=== PATIENT | male | born 1960 | race Caucasian/White ===

== ENCOUNTER 2017-08-21 16:50 | Emergency (ER) | payer OTHER ==
[~2017-08-21] VITALS: Ht 170.2 cm; Wt 70.5 kg
[~2017-08-21 16:50] MED LIST: ASPIR-LOW81 MG PO; CHLORDIAZEPOXID25 MG PO; EFFEXOR50 MG PO; EXTRA STRENGTH500 M1 PO; FLEXERIL10 MG PO; FOLIC ACID1 MG PO; GABAPENTIN300 MG PO; LIBRIUM25 MG PO; MECLIZINE HCL25 MG PO; MELOXICAM7.5 MG PO; MOBIC15 MG PO; MULTI VITAMIN1 EACH PO; NALTREXONE HCL50 MG PO; NICOTINE PATCH1 EAC2 TD; THERAGRAN1 TABLET PO; THIAMINE HCL100 MG PO; TRAZODONE HCL100 MG PO; ULTRAM50 MG PO; VITAMIN B-1100 MG PO
[2017-08-21 18:14] LABS: SERUM ETHYL ALCOHOL 202 mg/dL
[2017-08-21 18:47] LABS: HEMATOCRIT 47.1 % (38.0-50.0); MCH 33.7 PG (29.0-34.0); MCHC 33.8 G/DL (30.0-36.0); MCV 99.8 FL (86-99); MEAN PLAT.VOLUME 9.6 uM^3 (9.0-12.4); PLATELET COUNT 281 K/uL (156-360); RBC DIS.WIDTH-CV 15.6 % (11.8-14.6); RBC DIS.WIDTH-SD 57.5 % (39-53); RED BLOOD COUNT 4.72 M/uL (4.00-5.50); WHITE BLOOD COUNT 6.9 K/uL (4.1-10.2)
[2017-08-21 18:52] LABS: CHLORIDE 104 mEq/L (99-109); SODIUM 141 mEq/L (136-147)
[2017-08-21 18:53] LABS: GLUCOSE 128 mg/dL (70-99)
[2017-08-21 18:55] LABS: ANION GAP 11 MEQ/L (2-14)
[2017-08-21 18:57] LABS: GFR ESTIMATE (CALCULATED) > 59 mL/min/
[2017-08-21 18:58] LABS: UREA NITROGEN (BUN) 17 mg/dL (9-23)
[2017-08-21 20:50] LABS: ADD MEDTOX COMMENT Y; AMPHETAMINE NEGATIVE (500 ng/mL); BARBITURATES NEGATIVE (200 ng/mL); BENZODIAZEPINES PRESUMPTIVE POSITIVE (150 ng/mL); COCAINE NEGATIVE (150 ng/mL); INTERNAL CONTROLS VALID? YES; METHADONE NEGATIVE (200 ng/mL); METHAMPHETAMINE NEGATIVE (500 ng/mL); OPIATES (MORPHINE) NEGATIVE (100 ng/mL); OXYCODONE NEGATIVE (100 ng/mL); PHENCYCLIDINE NEGATIVE (25 ng/mL); PROPOXYPHENE NEGATIVE (300 ng/mL); THC CANNABINOIDS NEGATIVE (50 ng/mL); TRICYCLIC ANTIDEPRESSANTS NEGATIVE (300 ng/mL)
[2017-08-21 21:03] LABS: ADD MIUA? YES; BILIRUBIN NEGATIVE; BLOOD NEGATIVE; COLOR YELLOW ((YELLOW)); GLUCOSE (STRIP) 50; KETONES 5; LEUKOCYTES NEGATIVE; NITRITE NEGATIVE; PROTEIN (STRIP) NEGATIVE; SPECIFIC GRAVITY 1.017 (1.000-1.030); UROBILINOGEN 0.2 MG/DL (0.2-1.0)
[2017-08-21 21:24] LABS: BENZODIAZEPINES, URINE SCREEN POSITIVE (200 ng/mL)
[2017-08-21 21:32] LABS: BACTERIA RARE /HPF; EPITHELIAL CELLS NONE SEEN /HPF; MUCUS TRACE /LPF; UCUL ADDED? NO; WHITE BLOOD CELLS 0-5 /HPF (0-5)
[2017-08-21 22:51] VITALS: BP 106/60
== END 2017-08-21 23:02 | disposition home or self-care (01) ==
LOC: EME 16:50
PROVIDERS: Emergency Medicine
DX: F10.229 Alcohol dependence with intoxication, unspecified (principal); R27.0 Ataxia, unspecified; Y90.7 Blood alcohol level of 200-239 mg/100 ml
CPT/HCPCS: 80048; 81003; 84999; 85027; 99281; 99285; G0480; J3411; J3475; J7030

== ENCOUNTER 2017-09-01 23:27 | Emergency (ER) | payer OTHER ==
[~2017-09-01] VITALS: Ht 170.2 cm; Wt 75.0 kg
[2017-09-02 00:46] LABS: EOSINOPHIL (%) 1.6 % (0-5); EOSINOPHIL COUNT 0.1 K/uL (0-0.3); HEMATOCRIT 43.5 % (38.0-50.0); INSTRUMENT ABS NEUTROPHIL CT 2.2 K/uL; LYMPHOCYTE COUNT 2.1 K/uL (1.0-2.8); MCH 33.5 PG (29.0-34.0); MCHC 34.3 G/DL (30.0-36.0); MCV 97.8 FL (86-99); MEAN PLAT.VOLUME 9.4 uM^3 (9.0-12.4); MONOCYTE (%) 9.7 % (3-12); MONOCYTE COUNT 0.5 K/uL (0-0.8); NEUTROPHIL (%) 45.2 % (45-76); NEUTROPHIL COUNT 2.2 K/uL (1.8-6.4); PLATELET COUNT 177 K/uL (156-360); RBC DIS.WIDTH-CV 15.9 % (11.8-14.6); RBC DIS.WIDTH-SD 58.3 % (39-53); RED BLOOD COUNT 4.45 M/uL (4.00-5.50)
[2017-09-02 00:58] LABS: CHLORIDE 109 mEq/L (99-109); POTASSIUM 3.7 mEq/L (3.7-5.4); SODIUM 144 mEq/L (136-147)
[2017-09-02 01:01] LABS: GLUCOSE 161 mg/dL (70-99)
[2017-09-02 01:02] LABS: ANION GAP 13 MEQ/L (2-14); TOTAL BILIRUBIN 0.4 mg/dL (0.0-1.0)
[2017-09-02 01:03] LABS: SERUM ETHYL ALCOHOL 248 mg/dL
[2017-09-02 01:04] LABS: ALKALINE PHOSPHATASE 64 IU/L (3-129); GFR ESTIMATE (CALCULATED) > 59 mL/min/
[2017-09-02 01:05] LABS: UREA NITROGEN (BUN) 7 mg/dL (9-23)
[2017-09-02 01:08] LABS: LIPASE 29 U/L (1.0-51.0)
[2017-09-02 07:20] VITALS: BP 112/72
== END 2017-09-02 07:29 | disposition home or self-care (01) ==
LOC: EME → EDBD 23:27 → EME 23:27
PROVIDERS: Emergency Medicine
DX: F10.229 Alcohol dependence with intoxication, unspecified (principal); Y90.8 Blood alcohol level of 240 mg/100 ml or more; R10.9 Unspecified abdominal pain; I10 Essential (primary) hypertension
CPT/HCPCS: 80053; 83690; 85025; 99281; 99284; G0480

== ENCOUNTER 2017-09-04 01:06 | Observation (INO) | payer OTHER ==
[~2017-09-04] VITALS: Ht 170.2 cm; Wt 67.6 kg
[2017-09-04 01:52] LABS: EOSINOPHIL (%) 1.1 % (0-5); EOSINOPHIL COUNT 0.1 K/uL (0-0.3); HEMATOCRIT 42.1 % (38.0-50.0); IMMATURE GRANULOCYTE (%) 0.1 % (0.0-0.7); INSTRUMENT ABS NEUTROPHIL CT 3.8 K/uL; LYMPHOCYTE COUNT 2.6 K/uL (1.0-2.8); MCH 33.3 PG (29.0-34.0); MCHC 34.9 G/DL (30.0-36.0); MCV 95.2 FL (86-99); MEAN PLAT.VOLUME 9.5 uM^3 (9.0-12.4); MONOCYTE COUNT 0.7 K/uL (0-0.8); NEUTROPHIL (%) 52.4 % (45-76); NEUTROPHIL COUNT 3.8 K/uL (1.8-6.4); PLATELET COUNT 171 K/uL (156-360); RBC DIS.WIDTH-CV 15.5 % (11.8-14.6); RBC DIS.WIDTH-SD 54.4 % (39-53); RED BLOOD COUNT 4.42 M/uL (4.00-5.50); WHITE BLOOD COUNT 7.2 K/uL (4.1-10.2)
[2017-09-04 02:01] LABS: CHLORIDE 105 mEq/L (99-109); POTASSIUM 3.4 mEq/L (3.7-5.4); SODIUM 141 mEq/L (136-147)
[2017-09-04 02:04] LABS: GLUCOSE 125 mg/dL (70-99)
[2017-09-04 02:05] LABS: ANION GAP 15 MEQ/L (2-14)
[2017-09-04 02:06] LABS: SERUM ETHYL ALCOHOL 159 mg/dL
[2017-09-04 02:07] LABS: ALKALINE PHOSPHATASE 59 IU/L (3-129); GFR ESTIMATE (CALCULATED) > 59 mL/min/
[2017-09-04 02:08] LABS: UREA NITROGEN (BUN) 10 mg/dL (9-23)
[2017-09-04 02:11] LABS: LIPASE 21 U/L (1.0-51.0)
[2017-09-04 02:12] LABS: TROP-I INTERPRETATION NEGATIVE; TROPONIN-I 0.03 ng/mL (0.0-0.30)
[2017-09-04 02:13] LABS: TOTAL BILIRUBIN 0.5 mg/dL (0.0-1.0)
[2017-09-04 02:50] LABS: POINT-OF-CARE METER ID UU13113702
[2017-09-04 03:57] LABS: MAGNESIUM 1.7 mg/dL (1.3-2.7)
[2017-09-04 05:05] VITALS: BP 122/76
[2017-09-04 07:14] LABS: TROP-I INTERPRETATION NEGATIVE; TROPONIN-I 0.04 ng/mL (0.0-0.30)
[2017-09-04 08:20] VITALS: BP 143/98
[2017-09-04 10:16] LABS: AMPHETAMINES QUANT VALUE 0 NG/ML; BARBITUATES QUANT VALUE 0 NG/ML; BENZODIAZEPINES, URINE SCREEN POSITIVE (200 ng/mL); MARIJUANA QUANT VALUE 0 NG/ML; OPIATES QUANTITATIVE VALUE 0 NG/ML; PHENCYCLIDINE QUANT VALUE 0 NG/ML
[2017-09-04 11:18] VITALS: BP 146/81
[2017-09-04 14:41] LABS: TROP-I INTERPRETATION NEGATIVE; TROPONIN-I 0.02 ng/mL (0.0-0.30)
[2017-09-04 15:14] VITALS: BP 142/80
[2017-09-04 19:12] VITALS: BP 153/88
[2017-09-05 05:57] LABS: ANION GAP 8 MEQ/L (2-14); CHLORIDE 101 MEQ/L (99-109); GFR ESTIMATE (CALCULATED) > 59 mL/min/; GLUCOSE 104 mg/dL (70-99); POTASSIUM 3.9 MEQ/L (3.7-5.4); SAMPLE HEMOLYSIS CHECK 0; SAMPLE ICTERIC CHECK 0; SAMPLE LIPEMIA CHECK 0; SODIUM 135 MEQ/L (136-147); UREA NITROGEN (BUN) 12 mg/dL (9-23)
[2017-09-05] MEDS ORDERED: MEDROL DOSEPAK4 MG PO (10:56)
== END 2017-09-05 12:12 | disposition home or self-care (01) ==
LOC: EME 01:06 → EDBD 01:06 → EME 01:06 → EDOF 03:19 → ENRESERV 03:21 → 5WEST 04:35
PROVIDERS: Emergency Medicine; Physician Assistant
DX: R07.9 Chest pain, unspecified (principal); F10.229 Alcohol dependence with intoxication, unspecified; F10.239 Alcohol dependence with withdrawal, unspecified; Y90.6 Blood alcohol level of 120-199 mg/100 ml; E87.6 Hypokalemia; M75.32 Calcific tendinitis of left shoulder; K29.20 Alcoholic gastritis without bleeding; K76.0 Fatty (change of) liver, not elsewhere classified; I10 Essential (primary) hypertension; F32.9 Major depressive disorder, single episode, unspecified; Z86.010 Personal history of colon polyps; Z87.19 Personal history of other diseases of the digestive system; S80.812A Abrasion, left lower leg, initial encounter; S80.811A Abrasion, right lower leg, initial encounter; S00.31XA Abrasion of nose, initial encounter; R00.0 Tachycardia, unspecified; G62.9 Polyneuropathy, unspecified; F17.220 Nicotine dependence, chewing tobacco, uncomplicated; Z80.1 Family history of malignant neoplasm of trachea, bronchus and lung; Z82.5 Family history of asthma and other chronic lower respiratory diseases; Z82.0 Family history of epilepsy and other diseases of the nervous system; Z82.49 Family history of ischemic heart disease and other diseases of the circulatory system
CPT/HCPCS: 71020; 73030; 80048; 80053; 80306 90; 82948; 83690; 83735; 84484; 85025; 93005; 99281; 99285; G0378; G0480; J1650; J2060; J2405; J3411; J7030; S0028

== ENCOUNTER 2017-09-17 12:25 | Observation (INO) | payer OTHER ==
[~2017-09-17] VITALS: Ht 170.2 cm; Wt 69.6 kg
[~2017-09-17 12:25] MED LIST changes: +MEDROL DOSEPAK4 MG PO
[2017-09-17 13:15] LABS: HEMATOCRIT 41.3 % (38.0-50.0); MCH 34.1 PG (29.0-34.0); MCHC 34.4 G/DL (30.0-36.0); RBC DIS.WIDTH-CV 15.3 % (11.8-14.6); RBC DIS.WIDTH-SD 55.3 % (39-53); RED BLOOD COUNT 4.16 M/uL (4.00-5.50)
[2017-09-17 13:22] LABS: CHLORIDE 100 mEq/L (99-109); SODIUM 134 mEq/L (136-147)
[2017-09-17 13:24] LABS: GLUCOSE 122 mg/dL (70-99)
[2017-09-17 13:25] LABS: ANION GAP 7 MEQ/L (2-14)
[2017-09-17 13:26] LABS: MCV 99.3 FL (86-99); PLATELET COUNT 269 K/uL (156-360); TOTAL BILIRUBIN 0.6 mg/dL (0.0-1.0)
[2017-09-17 13:28] LABS: ALKALINE PHOSPHATASE 120 IU/L (3-129); GFR ESTIMATE (CALCULATED) > 59 mL/min/ (58.99-99999)
[2017-09-17 13:29] LABS: UREA NITROGEN (BUN) 15 mg/dL (9-23)
[2017-09-17 14:00] LABS: SERUM ETHYL ALCOHOL < 10 mg/dL
[2017-09-17 14:33] LABS: ADD MIUA? NO; BILIRUBIN NEGATIVE; BLOOD NEGATIVE; COLOR YELLOW ((YELLOW)); GLUCOSE (STRIP) NEGATIVE; KETONES NEGATIVE; LEUKOCYTES NEGATIVE; NITRITE NEGATIVE; PROTEIN (STRIP) NEGATIVE; SPECIFIC GRAVITY 1.009 (1.000-1.030); UCUL ADDED? NO; UROBILINOGEN 0.2 MG/DL (0.2-1.0)
[2017-09-17 15:28] LABS: TROP-I INTERPRETATION NEGATIVE; TROPONIN-I 0.02 ng/mL (0.0-0.30)
[2017-09-17 23:44] VITALS: BP 144/98
[2017-09-17 23:45] LABS: TROP-I INTERPRETATION NEGATIVE; TROPONIN-I 0.02 ng/mL (0.0-0.30)
[2017-09-18 03:33] VITALS: BP 151/90
[2017-09-18 09:08] LABS: TROP-I INTERPRETATION NEGATIVE; TROPONIN-I 0.02 ng/mL (0.0-0.30)
[2017-09-18 15:24] VITALS: BP 118/64
[2017-09-18 20:43] VITALS: BP 152/90
[2017-09-18 23:28] VITALS: BP 148/75
[2017-09-19 03:51] VITALS: BP 138/89
[2017-09-19 08:15] VITALS: BP 140/78
[2017-09-19] MEDS ORDERED: PEPCID20 MG PO (08:24)
== END 2017-09-19 12:30 | disposition home or self-care (01) ==
LOC: EME 12:25 → EDOF 15:57 → CANRESERV 16:18 → ENRESERV 16:18 → 5WEST 20:16 → ENPENDDIS 09-19 11:08 → 5WEST 09-19 12:30
PROVIDERS: Internal Medicine; Physician Assistant
DX: R07.9 Chest pain, unspecified (principal); F10.239 Alcohol dependence with withdrawal, unspecified; R42 Dizziness and giddiness; I10 Essential (primary) hypertension; K76.0 Fatty (change of) liver, not elsewhere classified; Z86.010 Personal history of colon polyps; Z87.19 Personal history of other diseases of the digestive system; Z86.19 Personal history of other infectious and parasitic diseases; M19.90 Unspecified osteoarthritis, unspecified site; Z72.0 Tobacco use; Z82.49 Family history of ischemic heart disease and other diseases of the circulatory system; Z80.1 Family history of malignant neoplasm of trachea, bronchus and lung; Z82.5 Family history of asthma and other chronic lower respiratory diseases; Z82.0 Family history of epilepsy and other diseases of the nervous system
CPT/HCPCS: 71020; 80053; 81003; 83735; 84484; 85027; 93005; 99281; 99285; G0378; G0480; J1885; J2270; J2405; S0028

== ENCOUNTER 2017-09-22 15:25 | Emergency (ER) | payer OTHER ==
[~2017-09-22] VITALS: Ht 170.2 cm; Wt 69.1 kg
[~2017-09-22 15:25] MED LIST changes: +PEPCID20 MG PO
[2017-09-22] MEDS ORDERED: BACTRIM,SEPT1 TABLET PO (16:49)
[2017-09-22 16:51] LABS: HEMATOCRIT 42.3 % (38.0-50.0); HEMOGLOBIN 14.8 G/DL (12.5-16.6); MCH 34.3 PG (29.0-34.0); MCV 98.1 FL (86-99); PLATELET COUNT 297 K/uL (156-360); RBC DIS.WIDTH-CV 15.9 % (11.8-14.6); RBC DIS.WIDTH-SD 57.8 % (39-53); RED BLOOD COUNT 4.31 M/uL (4.00-5.50); WHITE BLOOD COUNT 6.6 K/uL (4.1-10.2)
[2017-09-22 16:59] LABS: ALBUMIN 3.6 g/dL (3.2-4.8); CHLORIDE 104 mEq/L (99-109); POTASSIUM 3.7 mEq/L (3.7-5.4)
[2017-09-22 17:01] LABS: GLUCOSE 103 mg/dL (70-99); TOTAL PROTEIN 6.6 g/dL (6.4-8.3)
[2017-09-22 17:04] LABS: SERUM ETHYL ALCOHOL 223 mg/dL
[2017-09-22 17:05] LABS: CREATININE 0.7 mg/dL (0.6-1.3); GFR ESTIMATE (CALCULATED) > 59 mL/min/ (58.99-99999)
[2017-09-22 17:06] LABS: AST (GOT) 24 IU/L (2-34); UREA NITROGEN (BUN) 9 mg/dL (9-23)
[2017-09-22 17:08] LABS: ALT (GPT) 19 IU/L (3-49)
[2017-09-22 17:11] LABS: ALKALINE PHOSPHATASE 160 IU/L (3-129); SODIUM 141 mEq/L (136-147); TOTAL BILIRUBIN 0.3 mg/dL (0.0-1.0)
[2017-09-22] MEDS ORDERED: MULTIPLE VITAM1 EACH PO (23:13)
[2017-09-22 23:35] VITALS: BP 121/80
== END 2017-09-22 23:44 | disposition home or self-care (01) ==
LOC: EME 15:25
PROVIDERS: Emergency Medicine Emergency Medical Services
DX: F10.129 Alcohol abuse with intoxication, unspecified (principal); Y90.7 Blood alcohol level of 200-239 mg/100 ml; F32.9 Major depressive disorder, single episode, unspecified; I10 Essential (primary) hypertension; M19.90 Unspecified osteoarthritis, unspecified site; F17.220 Nicotine dependence, chewing tobacco, uncomplicated
CPT/HCPCS: 70450; 80053; 85027; 85610; 90839; 99281; 99285; G0480; J3411; J7030; J7050

== ENCOUNTER 2017-09-23 19:06 | Emergency (ER) | payer OTHER ==
[~2017-09-23] VITALS: Ht 172.7 cm; Wt 89.9 kg
[~2017-09-23 19:06] MED LIST changes: +BACTRIM,SEPT1 TABLET PO; +MULTIPLE VITAM1 EACH PO
[2017-09-23 19:47] LABS: HEMATOCRIT 43.4 % (38.0-50.0); MCH 34.2 PG (29.0-34.0); MCHC 34.8 G/DL (30.0-36.0); MCV 98.2 FL (86-99); PLATELET COUNT 298 K/uL (156-360); RBC DIS.WIDTH-CV 15.7 % (11.8-14.6); RBC DIS.WIDTH-SD 56.7 % (39-53); RED BLOOD COUNT 4.42 M/uL (4.00-5.50); WHITE BLOOD COUNT 4.4 K/uL (4.1-10.2)
[2017-09-23 19:55] LABS: CHLORIDE 107 mEq/L (99-109); POTASSIUM 3.7 mEq/L (3.7-5.4); SODIUM 146 mEq/L (136-147)
[2017-09-23 19:56] LABS: GLUCOSE 84 mg/dL (70-99)
[2017-09-23 19:58] LABS: ANION GAP 13 MEQ/L (2-14)
[2017-09-23 20:00] LABS: GFR ESTIMATE (CALCULATED) > 59 mL/min/ (58.99-99999); SERUM ETHYL ALCOHOL 308 mg/dL
[2017-09-23 20:02] LABS: UREA NITROGEN (BUN) 5 mg/dL (9-23)
[2017-09-23 20:03] LABS: SALICYLATE < 5.0 MG/DL (15-30)
[2017-09-24 04:43] VITALS: BP 148/72
== END 2017-09-24 04:43 | disposition home or self-care (01) ==
LOC: EME 19:06
PROVIDERS: Emergency Medicine
DX: F10.129 Alcohol abuse with intoxication, unspecified (principal); R45.851 Suicidal ideations; Y90.8 Blood alcohol level of 240 mg/100 ml or more; Z90.79 Acquired absence of other genital organ(s)
CPT/HCPCS: 80048; 85027; 90837; 99281; 99285; G0480

== ENCOUNTER 2017-10-01 14:29 | Emergency (ER) | payer OTHER ==
[~2017-10-01] VITALS: Ht 170.2 cm; Wt 67.2 kg
[2017-10-01 18:02] LABS: HEMATOCRIT 47.6 % (38.0-50.0); MCHC 34.5 G/DL (30.0-36.0); MCV 98.6 FL (86-99); MEAN PLAT.VOLUME 9.9 uM^3 (9.0-12.4); PLATELET COUNT 267 K/uL (156-360); RBC DIS.WIDTH-CV 15.2 % (11.8-14.6); RBC DIS.WIDTH-SD 55.8 % (39-53); RED BLOOD COUNT 4.83 M/uL (4.00-5.50); WHITE BLOOD COUNT 6.2 K/uL (4.1-10.2)
[2017-10-01 18:24] LABS: TROP-I INTERPRETATION NEGATIVE; TROPONIN-I 0.03 ng/mL (0.0-0.30)
[2017-10-01 18:59] LABS: CHLORIDE 108 mEq/L (99-109); POTASSIUM 3.9 mEq/L (3.7-5.4); SODIUM 146 mEq/L (136-147)
[2017-10-01 19:01] LABS: GLUCOSE 115 mg/dL (70-99)
[2017-10-01 19:02] LABS: ANION GAP 12 MEQ/L (2-14)
[2017-10-01 19:04] LABS: GFR ESTIMATE (CALCULATED) > 59 mL/min/ (58.99-99999); SERUM ETHYL ALCOHOL 225 mg/dL
[2017-10-01 19:05] LABS: UREA NITROGEN (BUN) 11 mg/dL (9-23)
[2017-10-01 19:41] VITALS: BP 124/71
== END 2017-10-01 19:45 | disposition home or self-care (01) ==
LOC: EME 14:29
PROVIDERS: Emergency Medicine
DX: F10.129 Alcohol abuse with intoxication, unspecified (principal); Y90.7 Blood alcohol level of 200-239 mg/100 ml; R07.9 Chest pain, unspecified; I10 Essential (primary) hypertension
CPT/HCPCS: 80048; 84484; 85027; 93005; 99281; 99285; G0480; J7030

== ENCOUNTER 2017-11-17 12:09 | Emergency (ER) | payer OTHER ==
[~2017-11-17] VITALS: Ht 170.2 cm; Wt 64.0 kg
[2017-11-17 12:50] LABS: BASOPHIL (%) 0.4 % (0-1); EOSINOPHIL (%) 0.2 % (0-5); HEMOGLOBIN 16.9 G/DL (12.5-16.6); IMMATURE GRANULOCYTE (%) 0.4 % (0.0-0.7); LYMPHOCYTE COUNT 2.7 K/uL (1.0-2.8); MCH 33.3 PG (29.0-34.0); MCHC 35.2 G/DL (30.0-36.0); MCV 94.7 FL (86-99); MONOCYTE COUNT 0.6 K/uL (0-0.8); NEUTROPHIL COUNT 6.4 K/uL (1.8-6.4); PLATELET COUNT 223 K/uL (156-360); RBC DIS.WIDTH-CV 14.2 % (11.8-14.6); RBC DIS.WIDTH-SD 48.7 % (39-53); RED BLOOD COUNT 5.07 M/uL (4.00-5.50); WHITE BLOOD COUNT 9.8 K/uL (4.1-10.2)
[2017-11-17 13:01] LABS: CHLORIDE 106 mEq/L (99-109); POTASSIUM 3.8 mEq/L (3.7-5.4); SODIUM 147 mEq/L (136-147)
[2017-11-17 13:02] LABS: GLUCOSE 100 mg/dL (70-99)
[2017-11-17 13:06] LABS: CREATININE 0.7 mg/dL (0.6-1.3); GFR ESTIMATE (CALCULATED) > 59 mL/min/ (58.99-99999); SERUM ETHYL ALCOHOL 272 mg/dL
[2017-11-17 13:07] LABS: UREA NITROGEN (BUN) 16 mg/dL (9-23)
[2017-11-17 13:57] LABS: APPEARANCE CLEAR ((CLEAR)); BILIRUBIN NEGATIVE; BLOOD NEGATIVE; COLOR YELLOW ((YELLOW)); GLUCOSE (STRIP) NEGATIVE; KETONES NEGATIVE; LEUKOCYTES NEGATIVE; NITRITE NEGATIVE; PROTEIN (STRIP) 30; SPECIFIC GRAVITY 1.014 (1.000-1.030); UROBILINOGEN 0.2 MG/DL (0.2-1.0)
[2017-11-17 14:12] LABS: AMPHETAMINE NEGATIVE (500 ng/mL); BARBITURATES NEGATIVE (200 ng/mL); BENZODIAZEPINES NEGATIVE (150 ng/mL); BUPRENORPHINE NEGATIVE (10 ng/mL); COCAINE NEGATIVE (150 ng/mL); METHADONE NEGATIVE (200 ng/mL); METHAMPHETAMINE NEGATIVE (500 ng/mL); OPIATES (MORPHINE) NEGATIVE (100 ng/mL); OXYCODONE NEGATIVE (100 ng/mL); PHENCYCLIDINE NEGATIVE (25 ng/mL); PROPOXYPHENE NEGATIVE (300 ng/mL); THC CANNABINOIDS NEGATIVE (50 ng/mL); TRICYCLIC ANTIDEPRESSANTS NEGATIVE (300 ng/mL)
[2017-11-17 16:20] VITALS: BP 118/72
== END 2017-11-17 16:20 | disposition home or self-care (01) ==
LOC: EME 12:09
PROVIDERS: Emergency Medicine
DX: F10.129 Alcohol abuse with intoxication, unspecified (principal); R07.89 Other chest pain; Y90.8 Blood alcohol level of 240 mg/100 ml or more; I10 Essential (primary) hypertension; Z72.0 Tobacco use
CPT/HCPCS: 71045; 80048; 81003; 85025; 99281; 99284; G0480

== ENCOUNTER 2018-03-28 15:20 | Inpatient (IN) | payer OTHER ==
[~2018-03-28] VITALS: Ht 177.8 cm; Wt 76.0 kg
[2018-03-28 17:32] VITALS: BP 143/91
[2018-03-28 18:21] LABS: HEMATOCRIT 43.1 % (38.0-50.0); HEMOGLOBIN 14.8 G/DL (12.5-16.6); MCH 33.3 PG (29.0-34.0); MCHC 34.3 G/DL (30.0-36.0); MCV 96.9 FL (86-99); NRBC (%) 0.3 /100 WBC (0-0); PLATELET COUNT 237 K/uL (156-360); RBC DIS.WIDTH-CV 15.2 % (11.8-14.6); RBC DIS.WIDTH-SD 54.4 % (39-53); RED BLOOD COUNT 4.45 M/uL (4.00-5.50); WHITE BLOOD COUNT 5.8 K/uL (4.1-10.2)
[2018-03-28 18:45] LABS: ALBUMIN 3.8 G/DL (3.2-4.8); CHLORIDE 108 MEQ/L (99-109); MAGNESIUM 2.4 mg/dl (1.3-2.7); POTASSIUM 3.9 MEQ/L (3.7-5.4); SODIUM 144 MEQ/L (136-147); TOTAL BILIRUBIN 0.3 MG/DL (0.0-1.0)
[2018-03-28 18:51] LABS: ALKALINE PHOSPHATASE 54 IU/L (3-129); ALT (GPT) 31 IU/L (3-49); AST (GOT) 49 IU/L (2-34); CREATININE 0.7 MG/DL (0.6-1.3); GFR ESTIMATE (CALCULATED) > 59 mL/min/ (58.99-99999); GLUCOSE 80 mg/dL (70-99); LIPASE 11 U/L (1.0-51.0); TOTAL PROTEIN 5.9 G/DL (6.4-8.3); UREA NITROGEN (BUN) 11 mg/dL (9-23)
[2018-03-28 18:55] LABS: TROP-I INTERPRETATION NEGATIVE; TROPONIN-I 0.05 ng/mL (0.0-0.30)
[2018-03-28 19:16] VITALS: BP 121/76
[2018-03-28 19:17] LABS: CREATINE KINASE 444 IU/L (1-294)
[2018-03-29 03:59] VITALS: BP 120/36
[2018-03-29 05:32] LABS: HEMATOCRIT 40.5 % (38.0-50.0); HEMOGLOBIN 13.5 G/DL (12.5-16.6); MCH 32.5 PG (29.0-34.0); MCHC 33.3 G/DL (30.0-36.0); MCV 97.6 FL (86-99); NRBC (%) 0.6 /100 WBC (0-0); PLATELET COUNT 221 K/uL (156-360); RBC DIS.WIDTH-CV 14.9 % (11.8-14.6); RBC DIS.WIDTH-SD 54.2 % (39-53); RED BLOOD COUNT 4.15 M/uL (4.00-5.50); WHITE BLOOD COUNT 5.3 K/uL (4.1-10.2)
[2018-03-29 06:01] LABS: CHLORIDE 107 MEQ/L (99-109); CREATINE KINASE 327 IU/L (1-294); CREATININE 0.8 MG/DL (0.6-1.3); GFR ESTIMATE (CALCULATED) > 59 mL/min/ (58.99-99999); SODIUM 139 MEQ/L (136-147); UREA NITROGEN (BUN) 12 mg/dL (9-23)
[2018-03-29 06:03] LABS: GLUCOSE 130 mg/dL (70-99)
[2018-03-29 06:47] LABS: APPEARANCE CLEAR ((CLEAR)); BILIRUBIN NEGATIVE; BLOOD NEGATIVE; COLOR YELLOW ((YELLOW)); GLUCOSE (STRIP) NEGATIVE; KETONES NEGATIVE; LEUKOCYTES NEGATIVE; NITRITE NEGATIVE; PROTEIN (STRIP) NEGATIVE; SPECIFIC GRAVITY 1.019 (1.000-1.030); UCUL ADDED? NO; UROBILINOGEN 0.2 MG/DL (0.2-1.0)
[2018-03-29 07:10] LABS: BENZODIAZEPINES, URINE SCREEN Negative (200 ng/mL)
[2018-03-29 07:57] VITALS: BP 131/67
[2018-03-29 12:14] VITALS: BP 146/86
[2018-03-29 15:34] VITALS: BP 151/67
[2018-03-29 19:38] VITALS: BP 153/77
[2018-03-30] VITALS: BP 145/89
[2018-03-30 04:00] VITALS: BP 139/82
[2018-03-30 07:59] VITALS: BP 154/95
[2018-03-30 12:01] VITALS: BP 150/69
== END 2018-03-30 17:15 | disposition home or self-care (01) | DRG 897 ==
LOC: 5SOUTH 15:20 → ENRESERV 15:21 → 5SOUTH 15:36
PROVIDERS: Internal Medicine
DX: F10.220 Alcohol dependence with intoxication, uncomplicated (principal); F10.230 Alcohol dependence with withdrawal, uncomplicated; Y90.8 Blood alcohol level of 240 mg/100 ml or more; M62.82 Rhabdomyolysis; I10 Essential (primary) hypertension; R26.9 Unspecified abnormalities of gait and mobility; Y92.009 Unspecified place in unspecified non-institutional (private) residence as the place of occurrence of the external cause; T22.00XA Burn of unspecified degree of shoulder and upper limb, except wrist and hand, unspecified site, initial encounter; K76.0 Fatty (change of) liver, not elsewhere classified; Z86.010 Personal history of colon polyps; W19.XXXA Unspecified fall, initial encounter; Z79.82 Long term (current) use of aspirin
CPT/HCPCS: 80048; 80053; 80306 90; 81003; 82550; 83605; 83690; 83735; 84484; 85027; 85610; 87040; 87086; 97530 GO; J1644; J3411; J7030

== ENCOUNTER → 2018-04-18 | Emergency (ER) | payer OTHER ==
[~2018-04-18] VITALS: Ht 170.2 cm; Wt 73.4 kg
[2018-04-18 21:41] LABS: HEMATOCRIT 46.3 % (38.0-50.0); HEMOGLOBIN 16.4 G/DL (12.5-16.6); MCH 33.9 PG (29.0-34.0); MCHC 35.4 G/DL (30.0-36.0); MCV 95.7 FL (86-99); PLATELET COUNT 234 K/uL (156-360); RBC DIS.WIDTH-CV 14.9 % (11.8-14.6); RBC DIS.WIDTH-SD 52.3 % (39-53); RED BLOOD COUNT 4.84 M/uL (4.00-5.50); WHITE BLOOD COUNT 5.1 K/uL (4.1-10.2)
[2018-04-18 22:04] LABS: CHLORIDE 105 MEQ/L (99-109); CREATININE 0.7 MG/DL (0.6-1.3); GFR ESTIMATE (CALCULATED) > 59 mL/min/ (58.99-99999); GLUCOSE 103 mg/dL (70-99); POTASSIUM 4.1 MEQ/L (3.7-5.4); SODIUM 142 MEQ/L (136-147); UREA NITROGEN (BUN) 11 mg/dL (9-23)
[2018-04-19 02:03] LABS: SERUM ETHYL ALCOHOL 186 mg/dL
[2018-04-19 03:04] VITALS: BP 164/105
== END | disposition home or self-care (01) ==
LOC: EME 19:30
DX: G89.29 Other chronic pain (principal); M25.511 Pain in right shoulder; M25.512 Pain in left shoulder; F10.129 Alcohol abuse with intoxication, unspecified; M79.1 Myalgia; R53.1 Weakness; Y90.6 Blood alcohol level of 120-199 mg/100 ml; F17.220 Nicotine dependence, chewing tobacco, uncomplicated
CPT/HCPCS: 80048; 85027; 90839; 93005; 99281; 99284; G0480

== ENCOUNTER → 2018-04-20 21:43 | Emergency (ER) | payer OTHER | END | disposition left against medical advice (07) | LOC: EME 21:43 | DX: R07.9 Chest pain, unspecified (principal); Z53.21 Procedure and treatment not carried out due to patient leaving prior to being seen by health care provider | CPT/HCPCS: 93005 ==

== ENCOUNTER 2018-04-27 10:08 | Emergency (ER) | payer OTHER ==
[~2018-04-27] VITALS: Ht 170.2 cm; Wt 72.7 kg
[2018-04-27 10:56] LABS: APPEARANCE CLEAR ((CLEAR)); BILIRUBIN NEGATIVE; BLOOD NEGATIVE; COLOR YELLOW ((YELLOW)); GLUCOSE (STRIP) NEGATIVE; KETONES NEGATIVE; LEUKOCYTES NEGATIVE; NITRITE NEGATIVE; PROTEIN (STRIP) NEGATIVE; SPECIFIC GRAVITY 1.018 (1.000-1.030); UROBILINOGEN 0.2 MG/DL (0.2-1.0)
[2018-04-27 11:01] LABS: BASOPHIL (%) 1.2 % (0-1); BASOPHIL COUNT 0.1 K/uL (0-0.1); EOSINOPHIL (%) 1.7 % (0-5); EOSINOPHIL COUNT 0.1 K/uL (0-0.3); HEMATOCRIT 42.9 % (38.0-50.0); HEMOGLOBIN 15.1 G/DL (12.5-16.6); IMMATURE GRANULOCYTE (%) 0.4 % (0.0-0.7); LYMPHOCYTE COUNT 2.8 K/uL (1.0-2.8); MCH 33.6 PG (29.0-34.0); MCHC 35.2 G/DL (30.0-36.0); MCV 95.3 FL (86-99); MONOCYTE (%) 11.5 % (3-12); MONOCYTE COUNT 0.6 K/uL (0-0.8); NEUTROPHIL (%) 31.2 % (45-76); NEUTROPHIL COUNT 1.6 K/uL (1.8-6.4); PLATELET COUNT 216 K/uL (156-360); RBC DIS.WIDTH-CV 15.7 % (11.8-14.6); RBC DIS.WIDTH-SD 55.1 % (39-53); WHITE BLOOD COUNT 5.2 K/uL (4.1-10.2)
[2018-04-27 11:09] LABS: AMPHETAMINE NEGATIVE (500 ng/mL); BARBITURATES NEGATIVE (200 ng/mL); BENZODIAZEPINES PRESUMPTIVE POSITIVE (150 ng/mL); BUPRENORPHINE NEGATIVE (10 ng/mL); COCAINE NEGATIVE (150 ng/mL); METHADONE NEGATIVE (200 ng/mL); METHAMPHETAMINE NEGATIVE (500 ng/mL); OPIATES (MORPHINE) NEGATIVE (100 ng/mL); OXYCODONE NEGATIVE (100 ng/mL); PHENCYCLIDINE NEGATIVE (25 ng/mL); PROPOXYPHENE NEGATIVE (300 ng/mL); THC CANNABINOIDS NEGATIVE (50 ng/mL); TRICYCLIC ANTIDEPRESSANTS NEGATIVE (300 ng/mL)
[2018-04-27 11:11] LABS: CHLORIDE 106 mEq/L (99-109)
[2018-04-27 11:12] LABS: POTASSIUM 3.9 mEq/L (3.7-5.4); SODIUM 144 mEq/L (136-147)
[2018-04-27 11:14] LABS: GLUCOSE 106 mg/dL (70-99); TOTAL PROTEIN 6.7 g/dL (6.4-8.3)
[2018-04-27 11:16] LABS: TOTAL BILIRUBIN 0.3 mg/dL (0.0-1.0)
[2018-04-27 11:17] LABS: ALKALINE PHOSPHATASE 59 IU/L (3-129); SERUM ETHYL ALCOHOL 315 mg/dL
[2018-04-27 11:18] LABS: CREATININE 0.7 mg/dL (0.6-1.3); GFR ESTIMATE (CALCULATED) > 59 mL/min/ (58.99-99999)
[2018-04-27 11:19] LABS: AST (GOT) 31 IU/L (2-34); UREA NITROGEN (BUN) 10 mg/dL (9-23)
[2018-04-27 11:20] LABS: ALT (GPT) 25 IU/L (3-49)
[2018-04-27 11:21] LABS: LIPASE 20 U/L (1.0-51.0)
[2018-04-27 12:52] LABS: BENZODIAZEPINES, URINE SCREEN POSITIVE (200 ng/mL)
[2018-04-27 14:00] VITALS: BP 128/81
== END 2018-04-27 14:00 | disposition home or self-care (01) ==
LOC: EME 10:08
PROVIDERS: Emergency Medicine
DX: F10.129 Alcohol abuse with intoxication, unspecified (principal); Y90.8 Blood alcohol level of 240 mg/100 ml or more; F17.220 Nicotine dependence, chewing tobacco, uncomplicated
CPT/HCPCS: 80053; 81003; 83690; 84999; 85025; 93005; 99281; 99283; G0480

== ENCOUNTER 2018-05-19 18:08 | Emergency (ER) | payer OTHER ==
[~2018-05-19] VITALS: Ht 170.2 cm; Wt 74.5 kg
[2018-05-19 20:05] LABS: HEMATOCRIT 39.4 % (38.0-50.0); HEMOGLOBIN 13.7 G/DL (12.5-16.6); MCH 33.9 PG (29.0-34.0); MCHC 34.8 G/DL (30.0-36.0); MCV 97.5 FL (86-99); PLATELET COUNT 219 K/uL (156-360); RBC DIS.WIDTH-CV 15.6 % (11.8-14.6); RBC DIS.WIDTH-SD 56.4 % (39-53); RED BLOOD COUNT 4.04 M/uL (4.00-5.50); WHITE BLOOD COUNT 5.1 K/uL (4.1-10.2)
[2018-05-19 20:20] LABS: ALBUMIN 3.8 g/dL (3.2-4.8); CHLORIDE 106 mEq/L (99-109); POTASSIUM 3.7 mEq/L (3.7-5.4); SODIUM 144 mEq/L (136-147)
[2018-05-19 20:22] LABS: GLUCOSE 103 mg/dL (70-99); TOTAL PROTEIN 6.3 g/dL (6.4-8.3)
[2018-05-19 20:24] LABS: TOTAL BILIRUBIN 0.2 mg/dL (0.0-1.0)
[2018-05-19 20:25] LABS: SERUM ETHYL ALCOHOL 273 mg/dL
[2018-05-19 20:26] LABS: ALKALINE PHOSPHATASE 44 IU/L (3-129); CREATININE 0.7 mg/dL (0.6-1.3); GFR ESTIMATE (CALCULATED) > 59 mL/min/ (58.99-99999)
[2018-05-19 20:27] LABS: AST (GOT) 27 IU/L (2-34); UREA NITROGEN (BUN) 10 mg/dL (9-23)
[2018-05-19 20:29] LABS: ALT (GPT) 25 IU/L (3-49)
[2018-05-20 01:47] VITALS: BP 131/89
== END 2018-05-20 01:48 | disposition home or self-care (01) ==
LOC: EME 18:08
PROVIDERS: Emergency Medicine
DX: F10.129 Alcohol abuse with intoxication, unspecified (principal); Y90.8 Blood alcohol level of 240 mg/100 ml or more; I10 Essential (primary) hypertension
CPT/HCPCS: 80053; 81003; 85027; 99281; 99284; G0480

== ENCOUNTER 2018-05-20 20:14 | Emergency (ER) | payer OTHER ==
[~2018-05-20] VITALS: Ht 170.2 cm; Wt 75.1 kg
[2018-05-20 21:14] LABS: ALBUMIN 4.1 g/dL (3.2-4.8)
[2018-05-20 21:15] LABS: CHLORIDE 103 mEq/L (99-109); POTASSIUM 3.7 mEq/L (3.7-5.4); SODIUM 139 mEq/L (136-147)
[2018-05-20 21:17] LABS: GLUCOSE 136 mg/dL (70-99); TOTAL PROTEIN 6.7 g/dL (6.4-8.3)
[2018-05-20 21:19] LABS: APPEARANCE CLEAR ((CLEAR)); BILIRUBIN NEGATIVE; BLOOD NEGATIVE; COLOR STRAW ((YELLOW)); GLUCOSE (STRIP) NEGATIVE; KETONES NEGATIVE; LEUKOCYTES NEGATIVE; NITRITE NEGATIVE; PROTEIN (STRIP) NEGATIVE; SPECIFIC GRAVITY 1.008 (1.000-1.030); UCUL ADDED? NO; UROBILINOGEN 0.2 MG/DL (0.2-1.0)
[2018-05-20 21:20] LABS: ALKALINE PHOSPHATASE 55 IU/L (3-129); SERUM ETHYL ALCOHOL 180 mg/dL; TOTAL BILIRUBIN 0.3 mg/dL (0.0-1.0)
[2018-05-20 21:21] LABS: CREATININE 0.7 mg/dL (0.6-1.3); GFR ESTIMATE (CALCULATED) > 59 mL/min/ (58.99-99999); HEMATOCRIT 41.5 % (38.0-50.0); HEMOGLOBIN 14.7 G/DL (12.5-16.6); MCH 33.9 PG (29.0-34.0); MCHC 35.4 G/DL (30.0-36.0); MCV 95.8 FL (86-99); PLATELET COUNT 217 K/uL (156-360); RBC DIS.WIDTH-CV 14.8 % (11.8-14.6); RBC DIS.WIDTH-SD 52.6 % (39-53); RED BLOOD COUNT 4.33 M/uL (4.00-5.50); WHITE BLOOD COUNT 5.4 K/uL (4.1-10.2)
[2018-05-20 21:22] LABS: UREA NITROGEN (BUN) 10 mg/dL (9-23)
[2018-05-20 21:24] LABS: ALT (GPT) 36 IU/L (3-49)
[2018-05-20 21:26] LABS: AST (GOT) 46 IU/L (2-34)
[2018-05-20 21:29] LABS: AMPHETAMINE NEGATIVE (500 ng/mL); BARBITURATES NEGATIVE (200 ng/mL); BENZODIAZEPINES NEGATIVE (150 ng/mL); BUPRENORPHINE NEGATIVE (10 ng/mL); COCAINE NEGATIVE (150 ng/mL); METHADONE NEGATIVE (200 ng/mL); METHAMPHETAMINE NEGATIVE (500 ng/mL); OPIATES (MORPHINE) NEGATIVE (100 ng/mL); OXYCODONE NEGATIVE (100 ng/mL); PHENCYCLIDINE NEGATIVE (25 ng/mL); PROPOXYPHENE NEGATIVE (300 ng/mL); THC CANNABINOIDS NEGATIVE (50 ng/mL); TRICYCLIC ANTIDEPRESSANTS NEGATIVE (300 ng/mL)
[2018-05-21 00:58] VITALS: BP 182/98
== END 2018-05-21 00:59 | disposition home or self-care (01) ==
LOC: EME 20:14
PROVIDERS: Emergency Medicine
DX: F10.10 Alcohol abuse, uncomplicated (principal); Y90.6 Blood alcohol level of 120-199 mg/100 ml; I10 Essential (primary) hypertension; F17.200 Nicotine dependence, unspecified, uncomplicated
CPT/HCPCS: 80053; 81003; 85027; 90839; 99281; 99284; G0480

== ENCOUNTER 2018-06-01 18:24 | Emergency (ER) | payer OTHER ==
[~2018-06-01] VITALS: Ht 180.3 cm; Wt 71.4 kg
[2018-06-01 20:34] LABS: APPEARANCE CLEAR ((CLEAR)); BILIRUBIN NEGATIVE; BLOOD NEGATIVE; COLOR YELLOW ((YELLOW)); GLUCOSE (STRIP) NEGATIVE; KETONES NEGATIVE; LEUKOCYTES NEGATIVE; NITRITE NEGATIVE; PROTEIN (STRIP) NEGATIVE; SPECIFIC GRAVITY 1.017 (1.000-1.030); UROBILINOGEN 0.2 MG/DL (0.2-1.0)
[2018-06-01 20:49] LABS: AMPHETAMINE NEGATIVE (500 ng/mL); BARBITURATES NEGATIVE (200 ng/mL); BENZODIAZEPINES NEGATIVE (150 ng/mL); COCAINE NEGATIVE (150 ng/mL); METHADONE NEGATIVE (200 ng/mL); METHAMPHETAMINE NEGATIVE (500 ng/mL); OPIATES (MORPHINE) NEGATIVE (100 ng/mL); OXYCODONE NEGATIVE (100 ng/mL); PHENCYCLIDINE NEGATIVE (25 ng/mL); PROPOXYPHENE NEGATIVE (300 ng/mL); THC CANNABINOIDS NEGATIVE (50 ng/mL); TRICYCLIC ANTIDEPRESSANTS NEGATIVE (300 ng/mL)
[2018-06-01 20:50] LABS: BUPRENORPHINE NEGATIVE (10 ng/mL)
[2018-06-01 20:53] LABS: ALBUMIN 3.7 g/dL (3.2-4.8); CHLORIDE 111 mEq/L (99-109); POTASSIUM 3.6 mEq/L (3.7-5.4); SODIUM 146 mEq/L (136-147)
[2018-06-01 20:54] LABS: MAGNESIUM 2.1 mg/dL (1.3-2.7)
[2018-06-01 20:56] LABS: GLUCOSE 101 mg/dL (70-99); TOTAL PROTEIN 6.3 g/dL (6.4-8.3)
[2018-06-01 20:57] LABS: TOTAL BILIRUBIN 0.2 mg/dL (0.0-1.0)
[2018-06-01 20:58] LABS: SERUM ETHYL ALCOHOL 238 mg/dL
[2018-06-01 20:59] LABS: ALKALINE PHOSPHATASE 56 IU/L (3-129); CREATININE 0.8 mg/dL (0.6-1.3); GFR ESTIMATE (CALCULATED) > 59 mL/min/ (58.99-99999)
[2018-06-01 21:00] LABS: UREA NITROGEN (BUN) 10 mg/dL (9-23)
[2018-06-01 21:01] LABS: AST (GOT) 25 IU/L (2-34)
[2018-06-01 21:02] LABS: ALT (GPT) 19 IU/L (3-49)
[2018-06-01 21:03] LABS: LIPASE 24 U/L (1.0-51.0)
[2018-06-01 21:15] LABS: BASOPHIL (%) 1.2 % (0-1); BASOPHIL COUNT 0.1 K/uL (0-0.1); EOSINOPHIL (%) 0.9 % (0-5); EOSINOPHIL COUNT 0.1 K/uL (0-0.3); HEMATOCRIT 41.4 % (38.0-50.0); HEMOGLOBIN 14.2 G/DL (12.5-16.6); IMMATURE GRANULOCYTE (%) 0.4 % (0.0-0.7); LYMPHOCYTE (%) 32.6 % (15-42); LYMPHOCYTE COUNT 1.8 K/uL (1.0-2.8); MCH 33.7 PG (29.0-34.0); MCHC 34.3 G/DL (30.0-36.0); MCV 98.3 FL (86-99); MONOCYTE (%) 9.6 % (3-12); MONOCYTE COUNT 0.5 K/uL (0-0.8); NEUTROPHIL (%) 55.3 % (45-76); NEUTROPHIL COUNT 3.1 K/uL (1.8-6.4); PLATELET COUNT 226 K/uL (156-360); RBC DIS.WIDTH-CV 15.7 % (11.8-14.6); RBC DIS.WIDTH-SD 56.9 % (39-53); RED BLOOD COUNT 4.21 M/uL (4.00-5.50); WHITE BLOOD COUNT 5.6 K/uL (4.1-10.2)
[2018-06-01 22:27] LABS: TROP-I INTERPRETATION NEGATIVE; TROPONIN-I 0.01 ng/mL (0.0-0.30)
[2018-06-01 23:42] VITALS: BP 127/74
== END 2018-06-01 23:43 | disposition home or self-care (01) ==
LOC: EME 18:24
PROVIDERS: Emergency Medicine
DX: R07.89 Other chest pain (principal); F10.129 Alcohol abuse with intoxication, unspecified; Y90.7 Blood alcohol level of 200-239 mg/100 ml; S20.319A Abrasion of unspecified front wall of thorax, initial encounter; I10 Essential (primary) hypertension; Z72.0 Tobacco use
CPT/HCPCS: 71045; 80053; 81003; 83690; 83735; 84484; 85025; 93005; 99281; 99285; G0480